=== PATIENT | female | born 1960 | race Caucasian/White ===

== ENCOUNTER 2021-04-04 19:06 | Emergency (ER) | payer OTHER ==
[~2021-04-04] VITALS: Ht 152.4 cm; Wt 54.5 kg
[~2021-04-04 19:06] MED LIST: ALBU8.5H8 IH; HYDR-4061 PO; LEVO88TA4 PO; METF-960 PO; MULT-1192 PO; SIMV-261 PO
[2021-04-04] MEDS ORDERED: POVIDONE-IODINE 10% 120 ML SOLUTION TP ONE (20:30)
[2021-04-04] MEDS ORDERED: BUPIVACAINE HCL/PF 0.25% 10 ML VIAL SQ ONE (20:30)
[2021-04-04] MEDS ORDERED: IBUPROFEN 600 MG TABLET PO ONE (21:00)
[2021-04-04 21:30] VITALS: BP 122/69
== END 2021-04-04 22:29 | disposition home or self-care (01) ==
LOC: EMS 19:09 → MERGE 19:09 → EMS 22:29
DX: L02.211 Cutaneous abscess of abdominal wall (principal); E11.9 Type 2 diabetes mellitus without complications; E03.9 Hypothyroidism, unspecified; J45.909 Unspecified asthma, uncomplicated; F11.90 Opioid use, unspecified, uncomplicated; Z79.899 Other long term (current) drug therapy
CPT/HCPCS: 10060; 82962; 99283; J3490

== ENCOUNTER 2022-03-15 16:54 | Emergency (ER) | payer OTHER ==
[~2022-03-15] VITALS: Ht 149.9 cm; Wt 49.8 kg
[~2022-03-15 16:54] MED LIST changes: +ALBU8HFA IH; +METF-1211 PO; -METF-960 PO
[2022-03-15 20:02] LABS: BASOPHILS % (AUTO) 0.4 % (0.0-2.0); EOSINOPHILS % (AUTO) 0.2 % (1.0-6.0); HEMATOCRIT 29.7 % (36-46); HEMOGLOBIN 9.7 g/dL (12.0-16.0); LYMPHOCYTES # (AUTO) 2.4 K/uL (1.0-4.8); LYMPHOCYTES % (AUTO) 53.3 % (22.0-44.0); MEAN CORPUSCULAR HEMOGLOBIN 26.3 pg (26.0-34.0); MEAN CORPUSCULAR HGB CONC 32.5 G/dL (31.0-37.0); MEAN CORPUSCULAR VOLUME 81 fL (80-100); MONOCYTES # (AUTO) 0.3 K/uL (0.1-1.0); MONOCYTES % (AUTO) 7.7 % (2.0-9.0); NEUTROPHILS # (AUTO) 1.7 K/uL (1.8-7.7); NEUTROPHILS % (AUTO) 38.4 % (40.0-70.0); PLATELET COUNT (AUTO) 387 K/uL (150-450); RED BLOOD CELL COUNT(AUTO) 3.66 MIL/uL (4.00-5.20); RED CELL DISTRIBUTION WIDTH 19.7 % (11.5-14.5)
[2022-03-15 20:16] LABS: ALANINE AMINOTRANSFERASE 17 U/L (12-78); ALBUMIN 3.3 g/dL (3.4-5.0); ALKALINE PHOSPHATASE 72 U/L (46-116); ANION GAP 10 mmol/L (8-16); ASPARTATE AMINOTRANSFERASE 19 U/L (15-37); BILIRUBIN,TOTAL 0.4 mg/dL (0.1-1.0); CALCIUM, TOTAL 9.1 mg/dL (8.8-10.5); CARBON DIOXIDE 28 mmol/L (22-29); CHLORIDE 100 mmol/L (98-107); CREATININE 0.79 mg/dL (0.60-1.30); GLUCOSE,RANDOM 105 mg/dL (70-110); SODIUM SERUM 138 mmol/L (136-145); TOTAL PROTEIN, SERUM 9.6 g/dL (6.4-8.2); UREA NITROGEN, BLOOD 16 mg/dL (7-18)
[2022-03-15 20:17] LABS: PLATELET MORPHOLOGY COMMENT LARGE PLTS PRESENT
[2022-03-15 20:19] LABS: GLOMERULAR FILTR. RATE CALC > 60 mL/min (>60); POTASSIUM 2.9 mmol/L (3.5-5.1)
[2022-03-15] MEDS ORDERED: POTASSIUM CHLORIDE 20 MEQ ER TABLET PO ONE (20:30)
[2022-03-15 22:56] VITALS: BP 121/65
== END 2022-03-15 23:55 | disposition left against medical advice (07) ==
LOC: EMS 16:54
DX: I31.3 Pericardial effusion (noninflammatory) (principal); J45.909 Unspecified asthma, uncomplicated; E11.9 Type 2 diabetes mellitus without complications; E03.9 Hypothyroidism, unspecified; F17.210 Nicotine dependence, cigarettes, uncomplicated; F19.90 Other psychoactive substance use, unspecified, uncomplicated
CPT/HCPCS: 74176; 80053; 85025; 99285